=== PATIENT | female | born 1995 | race African-American/Black ===

== ENCOUNTER 2022-12-14 02:41 | Inpatient (IN) | payer BC, OTHER ==
[2022-12-14 02:49] VITALS: BMI 23.6
[2022-12-14] MEDS ORDERED: ONDANSETRON 4 MG/2 ML VIAL IVPUSH ONE ×2 (03:31→07:14)
[2022-12-14] MEDS ORDERED: FAMOTIDINE 20 MG/50 ML IVPB 20 MG/50 ML MG IVPB ONE (03:31)
[2022-12-14] MEDS ORDERED: morphine CARPU-JECT 4 MG/1 ML DISP.SYRIN IVPUSH ONE (03:35)
[2022-12-14] MEDS ORDERED: SODIUM CHLORIDE 0.9% 500 ML INFUS.BAG IV ONE (03:37)
[2022-12-14] MEDS ORDERED: FENTANYL CITRATE/PF 50 MCG/ML VIAL ONE (03:59)
[2022-12-14 04:19] LABS: BASO % 0.5 % (0-2.0); EOS % 2.4 % (0-4.5); HEMATOCRIT 36.6 % (32.4-45.2); HEMOGLOBIN 12.6 GM/dL (10.7-15.3); LYMPH % 44.8 % (8-40); MCH 28.8 pg (25.7-33.7); MCHC 34.4 g/dl (32.0-36.0); MEAN CELL VOLUME 83.8 fl (80-96); MEAN PLT VOLUME 8.3 fl (7.5-11.1); MONO % 9.5 % (3.8-10.2); NEUT % 42.8 % (42.8-82.8); PLATELET COUNT 242 10^3/uL (134-434); RBC 4.36 M/mm3 (3.60-5.2); RDW 12.8 % (11.6-15.6); WHITE BLOOD COUNT 4.8 K/mm3 (4.0-10.0)
[2022-12-14 04:24] LABS: INR 1.02 (0.83-1.09); PROTHROMBIN TIME (PATIENT) 11.8 SEC (9.7-13.0)
[2022-12-14 04:26] LABS: CHLORIDE 108 mmol/L (98-107); POTASSIUM 3.7 mmol/L (3.5-5.1); SODIUM 141 mmol/L (136-145)
[2022-12-14 04:27] LABS: ACTIVATED PTT 33.6 SECONDS (25.2-36.5)
[2022-12-14 04:28] LABS: CALCIUM 8.9 mg/dL (8.5-10.1)
[2022-12-14 04:29] LABS: ALBUMIN 3.8 g/dl (3.4-5.0); ANION GAP 7 MMOL/L (8-16); BLOOD UREA NITROGEN 6.6 mg/dL (7-18); CO2 27 mmol/L (21-32); GLUCOSE,RANDOM 120 mg/dL (74-106)
[2022-12-14 04:32] LABS: CREATININE 0.8 mg/dL (0.55-1.3); SGOT/AST 19 U/L (15-37); SGPT/ALT 24 U/L (13-61)
[2022-12-14 04:33] LABS: TOT PROT 7.1 g/dl (6.4-8.2)
[2022-12-14 04:34] LABS: BILIRUBIN,TOTAL 0.2 mg/dL (0.2-1)
[2022-12-14 04:35] LABS: ALK PHOS 57 U/L (45-117)
[2022-12-14 04:37] LABS: LACTIC ACID 2.3 mmol/L (0.4-2.0)
[2022-12-14] MEDS ORDERED: morphine CARPU-JECT 2 MG/1 ML DISP.SYRIN IVPUSH ONE (04:46)
[2022-12-14] MEDS ORDERED: DICYCLOMINE HCL 20 MG/2 ML AMPUL IM ONE ×2 (05:30→05:44)
[2022-12-14] MEDS ORDERED: DICYCLOMINE HCL 20 MG TABLET PO ONE (05:34)
[2022-12-14] MEDS ORDERED: DICYCLOMINE HCL 10 MG CAPSULE ONE ×2 (05:34→05:35)
[2022-12-14] MEDS ORDERED: HALOPERIDOL LACTATE 5 MG/ML IM ONE ×3 (05:48→07:20)
[2022-12-14] MEDS ORDERED: LACTATED RINGERS SOLUTION 1000 ML INFUS.BAG IV ONE (07:15)
[2022-12-14] MEDS ORDERED: ONDANSETRON 4 MG/2 ML VIAL ONE ×2 (07:17→07:26)
[2022-12-14] MEDS ORDERED: ONDANSETRON 4 MG/2 ML VIAL IVPUSH PRN (15:54)
[2022-12-14] MEDS ORDERED: ACETAMINOPHEN 1000 MG/100 ML BAG IVPB PRN (15:58)
[2022-12-14] MEDS: LACTATED RINGERS SOLUTION 1,000 ML/1,000 ML INFUS.BAG IV SCH ×2 (16:30→23:56)
[2022-12-15] MEDS ORDERED: SODIUM CHLORIDE 1,000 ML IV STA (09:40)
[2022-12-15] MEDS: POLYETHYLENE GLYCOL (HEALTHYLAX) 3350 17 GM PACKET PO SCH ×2 (11:38→23:35)
[2022-12-15] MEDS: LACTATED RINGERS SOLUTION 1,000 ML/1,000 ML INFUS.BAG IV SCH ×4 (11:38→20:37)
[2022-12-15 12:40] LABS: HEMOGLOBIN 11.2 GM/dL (10.7-15.3); MCH 28.5 pg (25.7-33.7); MCHC 33.1 g/dl (32.0-36.0); MEAN CELL VOLUME 86.1 fl (80-96); MEAN PLT VOLUME 7.8 fl (7.5-11.1); PLATELET COUNT 214 10^3/uL (134-434); RBC 3.94 M/mm3 (3.60-5.2); RDW 12.5 % (11.6-15.6); WHITE BLOOD COUNT 3.8 K/mm3 (4.0-10.0)
[2022-12-15 12:57] LABS: POTASSIUM 3.7 mmol/L (3.5-5.1)
[2022-12-15 12:58] LABS: CALCIUM 8.6 mg/dL (8.5-10.1)
[2022-12-15 12:59] LABS: BLOOD UREA NITROGEN 5.8 mg/dL (7-18)
[2022-12-15 13:02] LABS: CREATININE 0.8 mg/dL (0.55-1.3)
[2022-12-16] MEDS: POLYETHYLENE GLYCOL (HEALTHYLAX) 3350 17 GM PACKET PO SCH ×2 (09:31→21:30)
[2022-12-16 14:17] LABS: BASO % 0.3 % (0-2.0); EOS % 1.4 % (0-4.5); HEMATOCRIT 35.4 % (32.4-45.2); HEMOGLOBIN 11.7 GM/dL (10.7-15.3); LYMPH % 38.1 % (8-40); MCH 28.5 pg (25.7-33.7); MEAN CELL VOLUME 86.4 fl (80-96); MEAN PLT VOLUME 7.9 fl (7.5-11.1); MONO % 8.4 % (3.8-10.2); NEUT % 51.8 % (42.8-82.8); PLATELET COUNT 229 10^3/uL (134-434); RDW 12.3 % (11.6-15.6); WHITE BLOOD COUNT 4.1 K/mm3 (4.0-10.0)
[2022-12-16 14:35] LABS: POTASSIUM 3.8 mmol/L (3.5-5.1)
[2022-12-16 14:37] LABS: CALCIUM 9.1 mg/dL (8.5-10.1)
[2022-12-16 14:38] LABS: ALBUMIN 3.8 g/dl (3.4-5.0); BLOOD UREA NITROGEN 5.2 mg/dL (7-18)
[2022-12-16 14:39] LABS: MAGNESIUM 1.8 mg/dL (1.8-2.4)
[2022-12-16 14:41] LABS: CREATININE 0.8 mg/dL (0.55-1.3)
[2022-12-16 14:42] LABS: BILIRUBIN,TOTAL 0.5 mg/dL (0.2-1); TOT PROT 6.8 g/dl (6.4-8.2)
[2022-12-16] MEDS: LACTATED RINGERS SOLUTION 1,000 ML/1,000 ML INFUS.BAG IV SCH ×2 (17:20→21:31)
[2022-12-17] MEDS: POLYETHYLENE GLYCOL (HEALTHYLAX) 3350 17 GM PACKET PO SCH (09:17)
[2022-12-17 10:00] LABS: BASO % 0.4 % (0-2.0); EOS % 1.9 % (0-4.5); HEMATOCRIT 37.4 % (32.4-45.2); HEMOGLOBIN 12.1 GM/dL (10.7-15.3); LYMPH % 42.2 % (8-40); MCH 28.1 pg (25.7-33.7); MCHC 32.5 g/dl (32.0-36.0); MEAN CELL VOLUME 86.6 fl (80-96); MEAN PLT VOLUME 8.1 fl (7.5-11.1); MONO % 8.5 % (3.8-10.2); PLATELET COUNT 247 10^3/uL (134-434); RBC 4.31 M/mm3 (3.60-5.2); RDW 12.3 % (11.6-15.6); WHITE BLOOD COUNT 3.4 K/mm3 (4.0-10.0)
[2022-12-17 10:06] LABS: INR 1.15 (0.83-1.09); PROTHROMBIN TIME (PATIENT) 13.3 SEC (9.7-13.0)
[2022-12-17 10:19] LABS: POTASSIUM 3.7 mmol/L (3.5-5.1)
[2022-12-17 10:25] LABS: ALBUMIN 4.1 g/dl (3.4-5.0); BLOOD UREA NITROGEN 6.3 mg/dL (7-18); MAGNESIUM 1.8 mg/dL (1.8-2.4)
[2022-12-17 10:27] LABS: CREATININE 0.8 mg/dL (0.55-1.3)
[2022-12-17 10:29] LABS: BILIRUBIN,TOTAL 0.8 mg/dL (0.2-1); TOT PROT 7.2 g/dl (6.4-8.2)
[2022-12-17] MEDS ORDERED: PROPOFOL 40 ML ONE (10:49)
[2022-12-17] MEDS ORDERED: SUCCINYLCHOLINE CHLORIDE 200 MG/10 ML SYRINGE ONE (10:49)
[2022-12-17] MEDS ORDERED: ROCURONIUM BROMIDE 50 MG/5 ML SYRINGE ONE (10:50)
[2022-12-17] MEDS ORDERED: MIDAZOLAM HCL 2 MG/2 ML SINGLE DOSE VIAL ONE (10:50)
[2022-12-17] MEDS ORDERED: BUPIVACAINE HCL/PF 0.25% (2.5MG/ML) 10 ML VIAL ONE (10:52)
[2022-12-17] MEDS ORDERED: DEXMEDETOMIDINE HCL 200 MCG/2 ML IVPB ONE (10:55)
[2022-12-17] MEDS ORDERED: ACETAMINOPHEN INJECTION 100 ML IVPB ONE (10:55)
[2022-12-17] MEDS ORDERED: HEPARIN NA (PORCINE) 5,000 UNITS/ML 1ML VIAL ONE (11:08)
[2022-12-17] MEDS ORDERED: HYDROmorphone HCl 2 MG/ML VIAL ONE ×2 (11:11→14:33)
[2022-12-17] MEDS ORDERED: HEPARIN NA (PORCINE) 5,000 UNITS/ML 1ML VIAL SQ ONE (11:26)
[2022-12-17] MEDS ORDERED: cefOXitin SODIUM 2 GM VIAL (RESTRICTED TO ID) IVPB ONE ×2 (11:42→11:44)
[2022-12-17] MEDS ORDERED: SODIUM CHLORIDE 0.9% P/F 10 ML VIAL IJ ONE (11:51)
[2022-12-17] MEDS ORDERED: DEXAMETHASONE SOD PHOSPHATE 4 MG/1 ML VIAL ONE (11:51)
[2022-12-17] MEDS ORDERED: MINERAL OIL/PETROLATUM,WHITE 3.5 GM TUBE ONE (11:51)
[2022-12-17] MEDS ORDERED: ONDANSETRON 4 MG/2 ML VIAL ONE ×2 (11:51→15:06)
[2022-12-17] MEDS ORDERED: BUPIVACAINE HCL/PF 0.25% (2.5MG/ML) 10 ML VIAL IJ ONE ×2 (12:01)
[2022-12-17] MEDS ORDERED: NEOSTIGMINE METHYLSULFATE 0.5 MG/1 ML - 10 ML MDV ONE (12:46)
[2022-12-17] MEDS ORDERED: SUGAMMADEX SODIUM 200 MG/2 ML VIAL ONE (12:58)
[2022-12-17] MEDS ORDERED: LACTATED RINGERS SOLUTION 1,000 ML IV SCH ×2 (13:15→13:26)
[2022-12-17] MEDS ORDERED: ONDANSETRON 4 MG/2 ML VIAL IVPUSH PRN ×2 (13:15→13:26)
[2022-12-17] MEDS ORDERED: HYDROmorphone HCl 2 MG/ML VIAL IVPUSH ONE (14:38)
[2022-12-17] MEDS: KETOROLAC TROMETHAMINE 15 MG/ML VIAL IVPUSH PRN (16:58)
[2022-12-17] MEDS: ACETAMINOPHEN 1000 MG/100 ML BAG IVPB SCH (21:19)
[2022-12-18] MEDS: ACETAMINOPHEN 1000 MG/100 ML BAG IVPB SCH (03:07)
[2022-12-18] MEDS: KETOROLAC TROMETHAMINE 15 MG/ML VIAL IVPUSH PRN (05:13)
[2022-12-18] MEDS ORDERED: HEPARIN NA (PORCINE) 5,000 UNITS/ML 1ML VIAL SQ SCH (10:00)
[2022-12-18 12:35] LABS: BASO % 0.4 % (0-2.0); EOS % 0.8 % (0-4.5); HEMATOCRIT 41.9 % (32.4-45.2); HEMOGLOBIN 13.7 GM/dL (10.7-15.3); LYMPH % 45.3 % (8-40); MCH 27.9 pg (25.7-33.7); MCHC 32.6 g/dl (32.0-36.0); MEAN CELL VOLUME 85.8 fl (80-96); MEAN PLT VOLUME 8.4 fl (7.5-11.1); MONO % 9.4 % (3.8-10.2); NEUT % 44.1 % (42.8-82.8); PLATELET COUNT 307 10^3/uL (134-434); RBC 4.89 M/mm3 (3.60-5.2); RDW 12.6 % (11.6-15.6)
[2022-12-18] MEDS ORDERED: ACETAMINOPHEN 325 MG TABLET (FP) PO SCH (12:45)
[2022-12-18 13:31] LABS: POTASSIUM 3.5 mmol/L (3.5-5.1)
[2022-12-18 13:45] LABS: ALBUMIN 4.4 g/dl (3.4-5.0); MAGNESIUM 1.9 mg/dL (1.8-2.4)
[2022-12-18 13:46] LABS: BLOOD UREA NITROGEN 5.9 mg/dL (7-18)
[2022-12-18 13:48] LABS: CREATININE 0.9 mg/dL (0.55-1.3)
[2022-12-18 13:50] LABS: BILIRUBIN,TOTAL 0.8 mg/dL (0.2-1)
[2022-12-18] MEDS ORDERED: KETOROLAC TROMETHAMINE 10 MG TABLET PO SCH (14:00)
[2022-12-18 14:32] VITALS: BP 133/76; PULSE 82; RESP 20; TEMP 98.3
== END 2022-12-18 15:50 | disposition home or self-care (01) | DRG 336 ==
LOC: JER 02:41 → JERBED 10:00 → J8W 13:39
PROVIDERS: ADMIT Internal Medicine; ATTEND Nurse Practitioner Family
PROC: 0DQV4ZZ Repair Mesentery, Percutaneous Endoscopic Approach (ICD-10-PCS; 2022-12-17)
PROC: 0DNW4ZZ Release Peritoneum, Percutaneous Endoscopic Approach (ICD-10-PCS; principal; 2022-12-17 10:45)
DX: K46.9 Unspecified abdominal hernia without obstruction or gangrene (principal); K56.600 Partial intestinal obstruction, unspecified as to cause; K66.0 Peritoneal adhesions (postprocedural) (postinfection)
CPT/HCPCS: 36415; 74018-TC-FY; 74177-TC; 80048; 80053; 83605; 83735; 84702; 85025; 85027; 85610; 85730; 86850; 86900; 86901; 93005; 93010; 94760; 99285-25; J1644; Q9967

== ENCOUNTER 2024-01-28 04:10 | Emergency (ER) | payer BC, OTHER ==
[2024-01-28 04:17] VITALS: TEMP 98.4; BMI 23.6
[2024-01-28] MEDS ORDERED: morphine SULFATE 4 MG/ML VIAL ONE (04:47)
[2024-01-28] MEDS: morphine CARPU-JECT 4 MG/1 ML DISP.SYRIN IVPUSH ONE (05:04)
[2024-01-28] MEDS ORDERED: ONDANSETRON 4 MG/2 ML VIAL ONE (05:05)
[2024-01-28] MEDS: ONDANSETRON 4 MG/2 ML VIAL IVPUSH ONE (05:08)
[2024-01-28 05:40] LABS: BASO % 0.5 % (0-2.0); EOS % 2.9 % (0-4.5); HEMATOCRIT 36.5 % (32.4-45.2); HEMOGLOBIN 11.9 GM/dL (10.7-15.3); LYMPH % 47.7 % (8-40); MCH 28.5 pg (25.7-33.7); MCHC 32.7 g/dl (32.0-36.0); MEAN CELL VOLUME 87.2 fl (80-96); MONO % 10.3 % (3.8-10.2); NEUT % 38.6 % (42.8-82.8); PLATELET COUNT 305 10^3/uL (134-434); RBC 4.18 M/mm3 (3.60-5.2); RDW 13.5 % (11.6-15.6); WHITE BLOOD COUNT 4.5 K/mm3 (4.0-10.0)
[2024-01-28 05:57] LABS: POTASSIUM 3.9 mmol/L (3.5-5.1)
[2024-01-28 06:05] LABS: BILIRUBIN,TOTAL 0.4 mg/dL (0.2-1); TOT PROT 7.2 g/dl (6.4-8.2)
[2024-01-28 06:30] LABS: PH,URINE 6.5 (5.0-8.0); URINE APPEARANCE CLEAR; URINE BILIRUBIN NEGATIVE (NEGATIVE); URINE COLOR YELLOW; URINE GLUCOSE (UA) NEGATIVE (NEGATIVE); URINE KETONE NEGATIVE (NEGATIVE); URINE LEUK ESTERASE NEGATIVE (NEGATIVE); URINE NITRITE NEGATIVE (NEGATIVE); URINE PROTEIN NEGATIVE (NEGATIVE); URINE UROBILINOGEN 0.2 mg/dL (0.2-1.0)
[2024-01-28 06:35] LABS: INR 1.04 (0.83-1.09); PROTHROMBIN TIME (PATIENT) 11.7 SEC (9.7-13.0)
[2024-01-28 06:38] LABS: ACTIVATED PTT 34.1 SECONDS (25.2-36.5)
[2024-01-28 06:42] LABS: ALBUMIN 4.2 g/dl (3.4-5.0); BLOOD UREA NITROGEN 8.5 mg/dL (7-18); CALCIUM 9.4 mg/dL (8.5-10.1)
[2024-01-28 06:45] LABS: CREATININE 0.9 mg/dL (0.55-1.3)
[2024-01-28 06:55] LABS: HIV INTERPRETATION NEGATIVE (NEGATIVE)
[2024-01-28 13:24] VITALS: BP 116/72; PULSE 70; RESP 15
== END 2024-01-28 13:37 | disposition home or self-care (01) ==
LOC: JER 04:10
PROC: 3E033NZ Introduction of Analgesics, Hypnotics, Sedatives into Peripheral Vein, Percutaneous Approach (ICD-10-PCS; principal; 2024-01-28)
PROC: 3E033GC Introduction of Other Therapeutic Substance into Peripheral Vein, Percutaneous Approach (ICD-10-PCS; 2024-01-28)
DX: R10.84 Generalized abdominal pain (principal); R11.2 Nausea with vomiting, unspecified
CPT/HCPCS: 36415; 74177-TC; 80053; 81003; 83605; 83690; 84703; 85025; 85610; 85730; 86803; 87389; 93005; 93010; 99285-25; Q9967